=== PATIENT | male | born 1935 | race Caucasian/White ===

== ENCOUNTER 2023-04-04 13:01 | Outpatient (OUT) | payer MEDICARE, OTHER, SELFPAY | END 2023-04-04 13:02 | LOC: CARD 13:06 | DX: Z89.612 Acquired absence of left leg above knee (principal); I73.9 Peripheral vascular disease, unspecified; S91.302A Unspecified open wound, left foot, initial encounter; L98.492 Non-pressure chronic ulcer of skin of other sites with fat layer exposed | CPT/HCPCS: 93923 ==

== ENCOUNTER 2023-05-06 13:21 | Outpatient (OUT) | payer MEDICARE, OTHER, SELFPAY ==
[2023-05-06 13:55] LABS: Basophils Absolute Auto 0.1 10^3/uL (0.0-0.1); Basophils Percent Auto 0.8 % (0.2-2.0); Eosinophils Absolute Auto 0.4 10^3/uL (0.0-0.7); Eosinophils Percent Auto 5.7 % (0.9-7.0); Hematocrit 41.5 % (42.0-54.0); Hemoglobin 14.2 g/dL (14.0-18.0); Immature Granulocytes Abs Auto 0.04 10^3/uL (0.00-0.03); Immature Granulocytes Pct Auto 0.6 % (0.0-0.5); Lymphocytes Absolute Auto 1.6 10^3/uL (1.2-3.8); Mean Corpuscular HGB Conc 34.2 g/dL (29.9-35.2); Mean Corpuscular Hemoglobin 30.1 pg (25.9-34.0); Mean Corpuscular Volume 87.9 fL (80.0-94.0); Mean Platelet Volume 9.1 fL (9.5-13.5); Monocytes Absolute Auto 0.8 10^3/uL (0.3-0.8); Monocytes Percent Auto 12.1 % (1.7-12.0); Neutrophils Absolute Auto 3.5 10^3/uL (1.4-6.5); Neutrophils Percent Auto 55.8 % (43.0-75.0); Platelet Count 141 10^3/uL (150-450); Red Blood Count 4.72 10^6/uL (4.70-6.10); Red Cell Distribution Width 13.6 % (11.0-15.0); White Blood Count 6.2 10^3/uL (4.0-11.0)
[2023-05-06 14:05] LABS: Alanine Aminotransferase 32 U/L (16-63); Albumin Globulin Ratio 1.2; Albumin Level 3.8 g/dL (3.4-5.0); Alkaline Phosphatase 72 U/L (46-116); Anion Gap 10.4; Aspartate Amino Transferase 22 U/L (15-37); BUN Creatinine Ratio 17.4; Bilirubin Total 0.8 mg/dL (0.2-1.0); Calcium 8.9 mg/dL (8.5-10.1); Carbon Dioxide 28.1 mmol/L (21.0-32.0); Chloride 100 mmol/L (98-107); Cholesterol 121 mg/dL (<=200); Estimated GFR (African America 49 (>=60); Estimated GFR (Non-African Ame 41 (>=60); Globulin 3.1 g/dL; Glucose 147 mg/dL (74-106); HDL Cholesterol 40 mg/dL (40-60); LDL Cholesterol Calculated 56.8 mg/dL; Potassium 4.5 mmol/L (3.5-5.1); Sodium 134 mmol/L (136-145); Total Protein 6.9 g/dL (6.4-8.2); Triglycerides 121 mg/dL (<=150); VLDL CHOLESTEROL 24.2 mg/dL
[2023-05-06 14:14] LABS: Estimated Average Glucose 192 mg/dL; Glycohemoglobin A1C 8.3 % (4.5-6.2)
== END 2023-05-06 13:22 | disposition home or self-care (01) ==
LOC: LAB 13:27
DX: I10 Essential (primary) hypertension (principal); E11.9 Type 2 diabetes mellitus without complications
CPT/HCPCS: 36415; 80053; 80061; 83036; 85025

== ENCOUNTER 2023-10-11 12:20 | Outpatient (OUT) | payer MEDICARE, OTHER, SELFPAY ==
--- NOTE | 2023-10-11 13:31 | CA_ITS ---
[facility] Test Date: 2023-10-11 Pat Name: DEVANG STOVER Department: Room: - Gender: Male System Dispatcher: Cece Heath : 1935 Requested By: OMI MCDERMOTT Order Number: [id number] Reading MD: JAHAIRA SHERMAN Interpretive Statements Monophasic doppler waveforms PVR waveforms with normal upstroke, amplitude but loss of dicrotic notch Right: - significant pressure gradient between the thigh and calf cuff - normal JAREN - borderline TBI Left: - AKA Impression: - left AKA - sigificant right femoropopliteal arterial disease with mild hemodynamic impairment of the right lower extremity at rest. - right calf (0.91) and right TBI (0.60) consistent with mild hemodynamic impairment of the right lower extremity at rest. - DP and PT are likely erroneous with DP indicating normal arterial flow and the PT indicating moderate to severe arterial flow. (right DP 1.01, right PT 0.57) - clinical correlation advised Electronically Signed On 10-12-2023 7:13:19 EST by JAHAIRA SHERMAN
== END 2023-10-11 12:21 | disposition home or self-care (01) ==
LOC: CARD 12:24
DX: I73.9 Peripheral vascular disease, unspecified (principal); Z89.612 Acquired absence of left leg above knee; L98.492 Non-pressure chronic ulcer of skin of other sites with fat layer exposed; R09.89 Other specified symptoms and signs involving the circulatory and respiratory systems
CPT/HCPCS: 93923

== ENCOUNTER 2024-04-09 08:49 | Outpatient (OUT) | payer MEDICARE, OTHER, SELFPAY ==
--- NOTE | 2024-04-09 09:01 | VEIN_ITS ---
[address] [address] Patient Name: DEVANG STOVER MRN: [id number] date: 1935 Sex: M Assigned Patient Location: Current Patient Location: Accession/Order Number: [id number] Exam Date: 04/09/2024 09:01 Report Date: 04/09/2024 11:16 At the request of: OMI MCDERMOTT Procedure: VC US Carotid EXAM: VC US Carotid HISTORY: Bilateral Carotid Stenosis I65.23 COMPARISON: None. TECHNIQUE: Grayscale, color and Doppler FINDINGS: Right carotid artery: Mild atherosclerotic plaque CCA: 75/10 ICA: 90/29 Bulb: 50/12 ECA: 50/0 Vertebral: 26/0, antegrade ICA/CCA ratio 1.7 Left carotid artery: Mild atherosclerotic plaque CCA: 79/13 ICA: 95/27 Bulb: 52/13 ECA: 74/0 Vertebral: 34/8, antegrade ICA/CCA ratio 1.8 VEIN/VC US Carotid IMPRESSION: 0-49% flow stenosis bilateral internal carotid arteries Electronically authenticated by: DYAN BETTENCOURT Date: 04/09/2024 11:16
--- NOTE | 2024-04-09 09:01 | VEIN_ITS ---
[facility] [place] [id number] Patient Name: DEVANG STOVER MRN: [id number] date: 1935 Sex: M Assigned Patient Location: Current Patient Location: Accession/Order Number: [id number] Exam Date: 04/09/2024 09:01 Report Date: 04/09/2024 11:13 At the request of: OMI MCDERMOTT Procedure: VC SEGMENTAL PRESSURES EXAM: VC SEGMENTAL PRESSURES HISTORY: Peripheral Artery Disease I73.9 , history of left leg amputation COMPARISON: None. FINDINGS: Segmental pressures presented as follows (right, left) in mmHg. Brachial: 163, 164 Upper thigh: 211, n/a Lower thigh: 256, n/a Calf: 167, n/a DPA: 161,n/a MAILROOM MESSENGER: 176, n/a 1st Toe: 108, n/a JAREN: 1.07, n/a, normal TBI: 0.66 n/a The ABIs is normal in the right PVR waveforms: Right leg: Thigh: Mild PAD Above knee: Mild PAD Below knee: Moderate PAD Right ankle: Moderate PAD Left leg: N/A, prior amputation VEIN/VC SEGMENTAL PRESSURES IMPRESSION: Right leg JAREN is normal Right leg PVR waveforms suggests mild to moderate peripheral arterial disease Electronically authenticated by: DYAN BETTENCOURT Date: 04/09/2024 11:13
== END 2024-04-09 08:50 | disposition home or self-care (01) ==
LOC: VC 08:58
DX: I65.23 Occlusion and stenosis of bilateral carotid arteries (principal); L98.492 Non-pressure chronic ulcer of skin of other sites with fat layer exposed; I73.9 Peripheral vascular disease, unspecified; Z89.612 Acquired absence of left leg above knee; S91.302A Unspecified open wound, left foot, initial encounter; R09.89 Other specified symptoms and signs involving the circulatory and respiratory systems
CPT/HCPCS: 93880; 93923